=== PATIENT | female | born 1965 | race Caucasian/White ===

== ENCOUNTER → 2020-05-29 12:19 | Outpatient (CLI) | payer OTHER, SELFPAY ==
--- NOTE | ~2020-05-29 | XR_ITS ---
XR abdomen/kub 1V DATE: 05/29/2020 12:43 INDICATION: Hematuria. Flank pain. TECHNIQUE: AP projection, 2 views COMPARISON: None FINDINGS: Calcified pelvic phleboliths are noted on the right. A faint small calcification overlies t he lower pole of the right kidney. Noncontrast CT abdomen pelvis examination would be more definitive for detection of urinary tract calculi. The psoas shadows are intact. No visceromegaly is evident. The bowel gas pattern is unremarkable, without evidence of obstruction. Included skeletal structures are unremarkable. IMPRESSION: Nonspecific abdomen Suggestion of small nonobstructing lower pole right renal calculus. Noncontrast CT abdomen pelvis wou ld be more sensitive for detection of urinary tract calculi Reviewed, dictated and finalized at [facility]. Reviewed, dictated and finalized at [facility]. [employer] IMPRESSION: Nonspecific abdomen Suggestion of small nonobstructing lower pole right renal calculus. Noncontrast CT abdomen pelvis would be more sensitive for detection of urinary tract calcu li
== END ==
LOC: EXPCRAD 12:27
PROVIDERS: PCP Physician Assistant; Visit Provider Physician Assistant
DX: N20.0 Calculus of kidney (principal)
CPT/HCPCS: 74018